=== PATIENT | female | born 1965 | race Asian ===

== ENCOUNTER 2024-11-12 06:28 | Day surgery (SDC) | payer OTHER ==
[2024-10-30 12:51] VITALS: BMI 25.2
[2024-11-12 09:10] VITALS: TEMP 98
[2024-11-12 09:13] VITALS: RESP 16
[2024-11-12 09:37] VITALS: BP 99/59; PULSE 56
== END 2024-11-12 09:52 | disposition home or self-care (01) ==
LOC: JASU-ENDO 06:28
PROVIDERS: ATTEND Internal Medicine Gastroenterology
PROC: 0DJD8ZZ Inspection of Lower Intestinal Tract, Via Natural or Artificial Opening Endoscopic (ICD-10-PCS; principal; 2024-11-12 08:45)
DX: Z12.11 Encounter for screening for malignant neoplasm of colon (principal); K64.8 Other hemorrhoids